=== PATIENT | male | born 1970 | race Caucasian/White ===

== ENCOUNTER 2016-12-15 23:27 | Emergency (ER) | payer OTHER ==
[~2016-12-15] VITALS: Ht 172.7 cm; Wt 74.8 kg
[2016-12-15 23:31] VITALS: BP 111/75
[2016-12-15] MEDS ORDERED: OXYMETAZOLINE HCL NASAL SPRAY 30 ML BOTTLE NS ONE (23:44)
[2016-12-15] MEDS ORDERED: SILVER NITRATE APPLICATOR 1 EA BOX ONE (23:44)
[2016-12-16] MEDS ORDERED: SILVER NITRATE APPLICATOR 1 EA BOX TP ONE
[2016-12-16] MEDS ORDERED: OXYMETAZOLINE HCL NASAL SPRAY 30 ML BOTTLE NS ONE
== END 2016-12-16 00:20 | disposition home or self-care (01) ==
LOC: ER 23:32
DX: R04.0 Epistaxis (principal); I10 Essential (primary) hypertension
CPT/HCPCS: 30901; 99284; A4606; Z7610